=== PATIENT | female | born 1995 | race Caucasian/White ===

== ENCOUNTER 2019-11-20 08:48 | Emergency (ER) | payer BC, OTHER ==
[~2019-11-20] VITALS: Ht 152.4 cm; Wt 92.5 kg
[2019-11-20 08:50] VITALS: BP 133/81
--- NOTE | 2019-11-20 09:14 | NUR ---
PT AMBULATED TO ER BED 12
--- NOTE | 2019-11-20 09:25 | NUR ---
24/F c/o headache and diarreha x2 days. Pt reports being 8 weeks . Pt c/o 10/11 headache. G-1 P0. Denies any vaginal bleeding. Denies any s/sx of UTI.
[2019-11-20 09:30] VITALS: BP 133/81
--- NOTE | 2019-11-20 09:30 | NUR ---
Patient discharged with v/s stable. Written and verbal after care instructions given and explained. Patient alert, oriented and verbalized understanding of instructions. Ambulatory with steady gait. All questions addressed prior to discharge. ID band removed. Patient advised to follow up with PMD. Rx of Macrobid 100mg given. Patient educated on indication of medication including possible reaction and side effects. Opportunity to ask questions provided and answered.
== END 2019-11-20 09:30 | disposition home or self-care (01) ==
LOC: MED 08:48
DX: O23.41 Unspecified infection of urinary tract in pregnancy, first trimester (principal); O26.891 Other specified pregnancy related conditions, first trimester; R51 Headache; R19.7 Diarrhea, unspecified; J45.909 Unspecified asthma, uncomplicated
CPT/HCPCS: 81002; 81025; 99283

== ENCOUNTER 2019-11-24 19:52 | Emergency (ER) | payer BC, OTHER ==
[~2019-11-24] VITALS: Ht 165.1 cm; Wt 93.0 kg
[2019-11-24 20:41] VITALS: BP 128/76
--- NOTE | 2019-11-24 20:50 | NUR ---
PT TRIAGED AND WAITING IN LOBBY
--- NOTE | 2019-11-24 21:55 | NUR ---
PATIENT LEFT WITHOUT BEING SEEN BY DR. GIBSON. NO FURTHER CARE PROVIDED FOR PATIENT.
== END 2019-11-24 21:55 | disposition left against medical advice (07) ==
LOC: MED 19:52
DX: R51 Headache (principal); Z53.21 Procedure and treatment not carried out due to patient leaving prior to being seen by health care provider